=== PATIENT | female | born 1945 | race Caucasian/White ===

== ENCOUNTER 2017-01-15 10:00 | Outpatient (CLI) | payer MEDICARE, OTHER ==
[2010-11-05 09:10] VITALS: BMI 22.0
== END 2017-01-15 23:59 | disposition home or self-care (01) ==
LOC: D.CT 10:00
DX: R10.13 Epigastric pain (principal)

== ENCOUNTER → 2017-07-13 10:50 | Outpatient (CLI) | payer MEDICARE, OTHER ==
[2010-11-05 09:10] VITALS: BMI 22.0
== END | disposition home or self-care (01) ==
LOC: D.US 10:50
DX: L68.0 Hirsutism (principal)

== ENCOUNTER → 2018-02-24 13:55 | Outpatient (CLI) | payer MEDICARE, OTHER ==
[2010-11-05 09:10] VITALS: BMI 22.0
== END | disposition home or self-care (01) ==
LOC: D.MRI 13:55
DX: G43.909 Migraine, unspecified, not intractable, without status migrainosus (principal)

== ENCOUNTER 2018-06-24 07:38 | Outpatient (CLI) | payer MEDICARE, OTHER ==
[~2018-06-24] VITALS: Ht 172.7 cm; Wt 81.8 kg
--- NOTE | ~2018-06-24 | OP ---
PATIENT NAME: JULIAN RESENDIZ MEDICAL RECORD: [id number] :45 LOCATION:D.CAT ADMISSION DATE: SURGEON: CHERELLE MATOS MD DATE OF OPERATION: 06/24/2018 PROCEDURES: 1. Left heart catheterization. 2. Selective coronary angiography. 3. Left ventriculogram. 4. Aortofemoral runoff. 5. Abdominal aortography. INDICATION: Leg pain compatible with claudication, chest pain compatible with angina. PROCEDURE IN DETAIL: After informed consent was obtained and after a detailed explanation of risks, benefits as well as alternative therapies, the patient elected to proceed with angiogram and heart catheterization. The right femoral area was prepped and draped in normal sterile fashion. The right femoral artery was cannulated via modified Seldinger technique with placement of 5-Bahamian sheath. All catheters exchanged through this sheath. FINDINGS: Left ventriculogram was performed in standard 30-degree HAMMONDS view, reveals good cardiac wall motion throughout all segments. Overall ejection fraction estimated 60%. SELECTIVE CORONARY ANGIOGRAPHY: Left main, left anterior descending, left circumflex, right coronary artery are all smooth-walled vessels with no angiographic evidence of coronary artery disease. Aortofemoral runoff was performed. The catheter was advanced for abdominal aortography as well. FINDINGS: Abdominal aortography reveals no significant abdominal aortic disease, no dissection or aneurysm formation. No renal artery stenosis. RIGHT LEG: A. Iliac: The common internal and external iliacs have no significant peripheral vascular disease. B. Femoral system: The common superficial and deep femoral have no significant peripheral vascular disease. C. Popliteal and infrapopliteal vessels are widely patent with good 3-vessel runoff to the foot. LEFT LEG: A. Iliac: The common internal and external iliacs have no significant peripheral vascular disease. B. Femoral system: The common superficial and deep femoral have no significant peripheral vascular disease. C. Popliteal and infrapopliteal vessels are widely patent with good 3-vessel runoff to the foot. OVERALL IMPRESSION: 1. No coronary artery disease present. 2. No peripheral vascular disease is present. OPERATIVE REPORT [id number] JULIAN RESENDIZ 3. Normal LV function. Cardiac and peripheral symptomatology are not secondary to arterial insufficiency. TRANSINT:[id number] Voice Confirmation ID: [id number] DOCUMENT ID: [id number] CHERELLE MATOS MD at 1052 CC: [id number] DICTATION DATE: 06/24/18 1159 MICA PARTS SPRAYER: 06/24/18 1213 DEP CLI 06/24/18 [place] [id number] [place] [id number]
--- NOTE | ~2018-06-24 | HEMODYNAMI ---
PATIENT:JULIAN RESENDIZ MEDICAL RECORD: [id number] : 45 LOCATION:[facility] ADMISSION DATE: 06/24/18 Generatedon:06/24/201812:00 Patient name: JULIAN RESENDIZ Patient #: [id number] SSN: : 1945 Date of study: 06/24/2018 Page: Of Hemodynamic Procedure Report Patient Data Patient Demographics Procedure consent was obtained First Name: JULIAN Gender: Female Last Name: ASTRID : 1945 Patient #: [id number] Age: 72 year(s) Race: Unknown Additional ID: [id number] Contact details Address: [place] [address] State: [place] City: [place] Zip code: [address] Past Medical History Allergies: No known allergies Admission Admission Data Admission Date: 06/24/2018 Admission Time: 7:38 Procedure Procedure Types Cath Procedure Diagnostic Procedure LHC LHC w/Coronaries Peripheral Cath Diagnostic Procedure Web Content Manager Peripheral Procedures Jqyub-Pvokilu-Axa-Off Procedure Description Procedure Date Procedure Date: 06/24/2018 Procedure Start Time: 11:49 Procedure End Time: 12:00 Procedure Staff Name Function Quoc Jameson MD Performing Physician Ethan Cat RN Switch Technician Nubia Brewer RT Monitor Barby Peterson RT Scrub Betty Alejandra RN Nurse Procedure Data Cath Procedure Fluoroscopy Diagnostic fluoroscopy Total fluoroscopy Time: 0.8 time: 0.8 min min Diagnostic fluoroscopy Total fluoroscopy dose: 294 dose: 294 mGy mGy Contrast Material Contrast Material Type Amount (ml) Isovue 300 63 Entry Location Entry Primary Successful Side Size Upsize Upsize Entry Closure Succes sful Closure Location (Fr) 1 (Fr) 2 (Fr) Remarks Device Remarks Femoral Right 5 Fr Vascade artery Closure System Estimated blood loss: 5 ml Diagnostic catheters Device Type Used For End Catheter Placement MULTIPACK Pigtail 5 Fr LV Angiography catheter MULTIPACK Pigtail 5 Fr Abdominal catheter aortogram with runoff MULTIPACK JL 4.0 5Fr Left Coronary catheter Angiography MULTIPACK 3DRC 5Fr Right Coronary catheter Angiography Procedure Complications No complications Procedure Medications Medication Administration Route Dosage 0.9% NaCl I.V. 100 ml/hr Oxygen etCO2 Nasal cannula 2 l/min Lidocaine 2% added to field 20 Heparin Flush Bag added to field 2 bags (1000units/500ml NS) Versed I.V. 2 mg Fentanyl I.V. 100 mcg Versed I.V. 2 mg Fentanyl I.V. 50 mcg Versed I.V. 2 mg Hemodynamics Rest Heart Rate: 72 (bpm) Snapshots Pre Cath Intra NCS Post Cath Vital Signs Time Heart Resp SPO2 etCO2 NIBP (mmHg) Rhythm Pain Sedation Rate (ipm) (%) (mmHg) Status Level (bpm) 11:05:10 65 17 99 35.2 190/97(118) NSR 0 (11) 10(A) , No pain 11:09:26 73 17 97 35.9 168/95(135) NSR 0 (11) 10(A) , No pain 11:13:50 73 17 96 36.7 176/95(141) NSR 0 (11) 10(A) , No pain 11:18:12 66 11 97 43.4 175/96(126) NSR 0 (11) 10(A) , No pain 11:22:39 71 11 97 44.2 176/100(122) NSR 0 (11) 10(A) , No pain 11:27:58 66 14 97 30.7 164/85(125) NSR 0 (11) 10(A) , No pain 11:32:18 70 10 96 27.7 168/93(128) NSR 0 (11) 10(A) , No pain 11:36:40 73 10 96 30.7 172/94(131) NSR 0 (11) 10(A) , No pain 11:40:58 73 11 95 31.4 161/90(138) NSR 0 (11) 10(A) , No pain 11:45:12 71 13 97 30.7 159/96(131) NSR 0 (11) 10(A) , No pain 11:49:34 71 11 96 21.7 155/92(114) NSR 0 (11) 10(A) , No pain 11:54:48 79 10 96 30.7 171/101(135) NSR 0 (11) 10(A) , No pain 11:59:14 78 15 97 23.9 188/112(151) NSR 0 (11) 10(A) , No pain Medications Time Medication Route Dose Verified Delivered Reason Notes Eff ectiveness by by 10:58:23 0.9% NaCl I.V. 100 Quoc Betty used for ml/hr Trino Alejandra graphic artist 10:58:30 Oxygen etCO2 2 Quoc Betty used for Nasal l/min Trino Alejandra procedure cannula RN 10:58:35 Lidocaine 2% added 20ml Quoc Quoc for local to vial Trino Jameson MD anesthetic field 10:58:40 Heparin Flush added 2 Quoc Quoc used for Bag to bags Trino Jameson MD procedure (1000units/500ml field NS) 11:45:09 Versed I.V. 2 mg Quoc Betty for Trino Alejandra sedation RN 11:45:17 Fentanyl I.V. 100 Quoc Betty for mcg Trino Alejandra sedation RN 11:50:26 Versed I.V. 2 mg Quoc Betty for Trino Alejandra sedation RN 11:50:31 Fentanyl I.V. 50 Quoc Betty for mcg Trino Alejandra sedation RN 11:54:20 Versed I.V. 2 mg Quoc Betty for Trino Alejandra sedation supervisor [employer]fit[employer] Log Time Note 10:54:07 Ethan Cat RN sent for patient. Start room use. 10:54:55 Time tracking: Regular hours (M-F 7:00 - 5:00) 10:55:00 Plan of Care:Hemodynamics will remain stable., Cardiac rhythm will remain stable., Comfort level will be maintained., Respiratory function will remain adequate., Patient/ family verbilizes understanding of procedure., Procedure tolerated without complication., Recovers from procedure without complications.. 10:58:11 Patient received from Pre/Post Procedure Room to CCL 1 Alert and oriented. Tansferred to table in Supine position. 10:58:13 Warm blankets applied, and alejandrina hugger turned on for patient comfort. 10:58:13 Correct patient and procedure confirmed by team. 10:58:14 Signed procedure consent form obtained from patient. 10:58:15 ECG and BP/O2 sat monitors applied to patient. 10:58:16 Full Disclosure recording started 10:58:23 0.9% NaCl 100 ml/hr I.V. was administered by Betty Alejandra RN; used for procedure; 10:58:30 Oxygen 2 l/min etCO2 Nasal cannula was administered by Betty Alejandra RN; used for procedure; 10:58:35 Lidocaine 2% 20ml vial added to field was administered by Quoc Jameson MD; for local anesthetic; 10:58:40 Heparin Flush Bag (1000units/500ml NS) 2 bags added to field was administered by Quoc Jameson MD; used for procedure; 11:03:54 Vital chart was started 11:08:08 Baseline sample Acquired. 11:08:13 Rhythm: sinus rhythm 11:08:37 H&P Date Dictated: 06/21/2018 Within 30 days and on chart., H&P Addendum completed by physician on day of procedure. (MUST COMPLETE FOR ALL OUTPATIENTS). 11:08:38 Pre-procedure instructions explained to patient. 11:08:39 Pre-op teaching completed and patient verbalized understanding. 11:08:41 Family in waiting room. 11:08:43 Patient NPO since Midnight. 11:08:52 Patient allergic to No known allergies 11:08:55 Is the patient allergic to Iodine/contrast media? No. 11:08:57 Is patient on blood thinner?Yes 11:08:59 ACC The patient was administered the following blood thiners within the last 24 hours: ACCPlavix 11:09:01 Patient diabetic? No. 11:09:04 Previous problem with sedation/anesthesia? No ? 11:09:05 Snore? Yes 11:09:07 Sleep apnea? No 11:09:08 Deviated septum? No 11:09:09 Opens mouth fully? Yes 11:09:10 Sticks out tongue? Yes 11:09:12 Airway obstruction? No ? 11:09:14 Dentures? Yes IN 11:09:19 Pre procedure: right dorsailis pedis pulse 2+ Normal; easily identifiable; not easily obliterated 11:09:22 Pre procedure: left dorsailis pedis pulse 2+ Normal; easily identifiable; not easily obliterated 11:09:24 Patient pain scale 0/10 ?. 11:09:31 IV patent on arrival in right forearm with 0.9% NaCl at [facility]. 11:09:35 Lab results completed and on chart. 11:09:38 Bilateral groins area was prepped with chlora-prep and draped in sterile fashion 11:09:39 Alarms reviewed by R. N. 11:09:39 Sharps counted by scrub and verified by R.N. 11:09:42 Use device set Femoral Dx 11:09:43 ACIST Syringe (89097) opened to sterile field. 11:09:43 Bag Decanter (2002S) opened to sterile field. 11:09:43 Medline Cath Pack ([id number]) opened to sterile field. 11:09:44 DIAGNOSTIC WIRE .035 260cm J wire (019364) opened to sterile field. 11:09:48 ACIST Hand Control (80859) opened to sterile field. 11:09:49 ACIST Manifold (46844) opened to sterile field. 11:09:49 DIAGNOSTIC Multipack 5Fr catheter set (CX1466) opened to sterile field. 11:09:50 Tegaderm 4 x 4 (1626W) opened to sterile field. 11:09:51 SHEATH Prelude 5Fr 0.035 (HXY-5K-19-035) opened to sterile field. 11:14:00 Zero performed for pressure channel P1 11:14:07 Zero performed for pressure channel P1 11:44:55 Final Timeout: patient, procedure, and site verified with staff and physician. All members of the team are in agreement. 11:44:57 Right groin site verified by team. 11:45:00 Physical assessment completed. ASA score P 2 - A patient with mild systemic disease as per Quoc Jameson MD. 11:45:03 Sedation plan: IV Moderate Sedation Medication:Versed, Fentanyl 11:45:09 Versed 2 mg I.V. was administered by Betty Alejandra RN; for sedation; 11:45:17 Fentanyl 100 mcg I.V. was administered by Betty Alejandra RN; for sedation; 11:49:20 Procedure started. 11:49:22 Local anesthetic to right femoral artery with Lidocaine 2% by Quoc Jameson MD.INITIAL ACCESS ONLY 11:49:34 A 5 Fr sheath was inserted into the Right Femoral artery 11:50:15 A MULTIPACK Pigtail 5 Fr catheter was advanced over the wire and used for LV Angiography. 11:50:26 Versed 2 mg I.V. was administered by Betty Alejandra RN; for sedation; 11:50:31 Fentanyl 50 mcg I.V. was administered by Betty Alejandra RN; for sedation; 11:50:42 LV gram done using HAMMONDS 11:50:46 Injector settings: Ml/sec: 10, Volume: 20, 11:50:53 EF : 55 % 11:51:01 A MULTIPACK Pigtail 5 Fr catheter was advanced over the wire and used for Abdominal aortogram with runoff. 11:51:59 Catheter removed. 11:52:24 A MULTIPACK JL 4.0 5Fr catheter was advanced over the wire and used for Left Coronary Angiography. 11:53:25 Catheter removed. 11:53:39 A MULTIPACK 3DRC 5Fr catheter was advanced over the wire and used for Right Coronary Angiography. 11:54:10 Catheter removed. 11:54:20 Versed 2 mg I.V. was administered by Betty Alejandra RN; for sedation; 11:54:20 VASCADE 5Fr ([id number]) opened to sterile field. 11:55:07 Sheath removed intact; hemostasis achieved with Vascade Closure System to the Right Femoral artery. 11:55:10 Procedure ended.(Physican Out) 11:55:20 Fluoroscopy time 00.80 minutes. 11:55:24 Fluoroscopy dose: 294 mGy 11:55:24 Flurop Dose total: 294 11:55:27 Contrast amount:Isovue 300 63ml. 11:55:29 Sharps counted by scrub and verified by R.N. 11:55:30 Insertion/operative site no bleeding no hematoma. 11:55:34 Post-op/insertion site Right Femoral artery dressed using a 4 x 4 and Tegaderm. 11:55:37 Post right femoral artery:stable, clean and dry 11:55:38 Post Procedure Pulses reassessed and unchanged 11:55:41 Post-procedure physical assessment completed. ASA score P 2 - A patient with mild systemic disease as per Quoc Jameson MD. 11:55:43 Post procedure rhythm: unchanged. 11:55:51 Estimated blood loss: 5 ml 11:55:52 Post procedure instruction explained to patient.Patient verbalizes understanding. 11:55:52 Patient needs reinforcement of post procedure teaching. 11:56:19 Procedure and supply charges have been captured, reviewed, submitted and are correct. 11:56:23 Procedure Complication : No complications 11:56:26 See physician's report for complete and final results. 11:59:47 Vital chart was stopped 11:59:49 Report given to Pre/Post Procedure Room. 11:59:55 Patient transfered to Pre/Post Procedure Room with Stretcher. 12:00:04 Procedure ended. 12:00:04 Full Disclosure recording stopped 12:00:07 End room use (Document Last) Device Usage Item Name Manufacture Quantity Catalog Number Hospital Part Current M inimal Lot# / Charge Number Stock Stock Serial# Code ACIST Syringe Acist 1 94664 739335 935734 292943 2 0 (81066) Medical Systems Bocada Bag Decanter Microtek 1 137120 17231 654915 5 () Medical Inc. Medline Cath Medline 1 [id number] 826899 21779 745754 5 Pack ([id number]) DIAGNOSTIC WIRE St Ricardo 1 420322 265609 930563 696516 3 0 .035 260cm J wire (935618) ACIST Hand Acist 1 61511 213815 787792 461389 5 Control (97111) Medical Systems Inc ACIST Manifold Acist 1 96572 785422 869946 570471 5 (04112) Medical Systems Inc DIAGNOSTIC Cardinal 1 [id number] 392213 31629 150184 3 0 Multipack 5Fr Health catheter set (PS1946) Tegaderm 4 x 4 3M 1 1626W 697387 996944 330916 5 (1626W) SHEATH Prelude Merit 1 [id number]-2K-70-035 879885 557287 644315 5 5Fr 0.035 Medical (LII-2L-36-035) MULTIPACK Cardinal 1 295166 5 Pigtail 5 Fr Health catheter MULTIPACK JL Cardinal 1 [id number] 5 4.0 5Fr Health catheter MULTIPACK 3DRC Cardinal 1 [id number] 5 5Fr catheter Health VASCADE 5Fr Cardiva 1 [id number] 890887 32646 605705 1 0 ([id number]) [employer] Signature Audit Beulah Stage Time Signature Unsigned Intra-Procedure 06/24/2018 Nubia 12:00:30 PM Counts RT(R) Signatures Monitor : Nubia Signature : Counts RT Date : Time : [address] [place] [address]
[2018-06-24] MEDS ORDERED: PLAVIX75 MG PO (08:00)
[2018-06-24] MEDS ORDERED: COMBIGAN OPHT DR5 ML EACH EYE (08:01)
[2018-06-24] MEDS ORDERED: XALATAN 0.0052.5 ML EACH EYE (08:01)
[2018-06-24] MEDS ORDERED: CELEXA20 MG PO (08:02)
[2018-06-24] MEDS ORDERED: CYCLOBENZAPRINE10 MG PO (08:02)
[2018-06-24] MEDS ORDERED: VALTREX1000 MG PO (08:04)
[2018-06-24] MEDS ORDERED: TYLENOL W/CODEI1 TAB PO (08:05)
[2018-06-24] MEDS ORDERED: PHENERGAN25 M1 PO (08:05)
[2018-06-24] MEDS ORDERED: PROTONIX40 MG PO (08:06)
[2018-06-24] MEDS ORDERED: IMITREX100 MG PO (08:06)
[2018-06-24 08:19] VITALS: BP 166/85; Ht 172.7 cm; Wt 81.8 kg
[2018-06-24 08:29] LABS: BASOPHILS 0.3 % (0-2); EOSINOPHILS 1.3 % (0-7); HEMATOCRIT 37.3 % (36.0-48.0); HEMOGLOBIN 12.7 g/dL (12-16); IMMATURE GRANULOCYTES 0.4 % (0-5); LYMPHOCYTES 44.1 % (15-50); MCH 29.5 pg (26.0-34.0); MCV 86.7 fL (80.0-100.0); MEAN PLATELET VOLUME 8.7 fL (7.4-10.4); NEUTROPHILS 48.9 % (40-80); PLATELET COUNT 388 10x3/uL (130-400); RDW 13.4 % (11.5-14.5)
[2018-06-24 08:39] LABS: CALC OSMOLALITY 281 mosm/kg (275-300); CALCIUM 8.8 mg/dL (8.5-10.1); CARBON DIOXIDE 25.3 mmol/L (21.0-32.0); CHLORIDE - SERUM 106 mmol/L (98-107); CREATININE - SERUM 0.7 mg/dL (0.6-1.3); GLUCOSE 101 mg/dL (74-106); POTASSIUM - SERUM 3.5 mmol/L (3.5-5.1); SODIUM 142 mmol/L (136-145); UREA NITROGEN 9 mg/dL (7-18); eGFR NON AFRICAN AMERICAN 87 mL/min (90-120)
== END 2018-06-24 14:28 | disposition home or self-care (01) ==
LOC: D.CATH 07:38
PROVIDERS: Internal Medicine Interventional Cardiology
DX: R07.89 Other chest pain (principal); M79.605 Pain in left leg; M79.604 Pain in right leg; Z01.812 Encounter for preprocedural laboratory examination

== ENCOUNTER 2018-11-13 03:35 | Emergency (ER) | payer MEDICARE, OTHER ==
[~2018-11-13] VITALS: Ht 172.7 cm; Wt 81.6 kg
[~2018-11-13 03:35] MED LIST: CELEXA20 MG PO; COMBIGAN OPHT DR5 ML EACH EYE; CYCLOBENZAPRINE10 MG PO; IMITREX100 MG PO; PHENERGAN25 M1 PO; PLAVIX75 MG PO; PROTONIX40 MG PO; TYLENOL W/CODEI1 TAB PO; VALTREX1000 MG PO; XALATAN 0.0052.5 ML EACH EYE
[2018-11-13 03:40] VITALS: Ht 172.7 cm; Wt 81.6 kg
[2018-11-13] MEDS ORDERED: CARAFATE1 G PO (03:42)
[2018-11-13] MEDS ORDERED: BAYER CHEWABLE81 MG PO (03:43)
[2018-11-13 04:02] LABS: APPEARANCE HAZY (CLEAR); BACTERIA NONE SEEN /hpf (NONE SEEN); BILIRUBIN NEGATIVE (NEGATIVE); COLOR YELLOW (YELLOW); EPITHELIAL CELLS NSEEN /hpf (0-5); GLUCOSE NEGATIVE (NEGATIVE); KETONE SMALL mg/dL (NEGATIVE); NITRITE NEGATIVE (NEGATIVE); PROTEIN NEGATIVE (NEGATIVE); SPECIFIC GRAVITY 1.015 (1.005-1.020); UROBILINOGEN NORMAL (NORMAL); WHITE CELLS - URINE RARE /hpf (0-5)
[2018-11-13] MEDS ORDERED: DILAUDID4 MG PO (06:02)
[2018-11-13 07:03] VITALS: BP 100/79
== END 2018-11-13 07:03 | disposition home or self-care (01) ==
LOC: D.ER 03:35
PROVIDERS: Emergency Medicine
DX: R10.9 Unspecified abdominal pain (principal); R31.9 Hematuria, unspecified; E27.8 Other specified disorders of adrenal gland; N20.1 Calculus of ureter